=== PATIENT | female | born 1995 | race American Indian/Alaskan Native ===

== ENCOUNTER 2021-07-21 11:26 | Emergency (ER) | payer MEDICAID ==
[2021-07-21] MEDS ORDERED: ONDANSETRON 4 MG/2 ML INJ IV ONE (11:53)
[2021-07-21] MEDS ORDERED: SODIUM CHLORIDE 0.9% 1000 ML 1,000 ML IV ONE (11:53)
[2021-07-21] MEDS ORDERED: MORPHINE 2 MG/1 ML INJ IV ONE (11:53)
[2021-07-21] MEDS ORDERED: ACETAMINOPHEN 500 MG TAB PO ONE (11:54)
[2021-07-21 12:34] LABS: Alanine Aminotransferase 20 units/L (7-56); Albumin 3.8 g/dL (3.9-5); Blood Urea Nitrogen 9 mg/dL (7-17); Calcium 8.9 mg/dL (8.4-10.2); Hemolysis Index 5
[2021-07-21 12:55] LABS: Basophils % (Auto) 0.3 % (0.0-1.8); Eosinophils % (Auto) 0.4 % (0.0-4.3); Hemoglobin 13.9 gm/dl (10.1-14.3); Lymphocytes # (Auto) 1.2 K/mm3 (1.2-5.4); Lymphocytes % (Auto) 11.7 % (13.4-35.0); Mean Corpuscular HGB Conc 33 % (30-34); Mean Corpuscular Volume 82 fl (79-97); Monocytes # (Auto) 0.8 K/mm3 (0.0-0.8); Monocytes % (Auto) 7.7 % (0.0-7.3); Platelet Count 277 K/mm3 (140-440); Red Blood Count 5.11 M/mm3 (3.65-5.03); Red Cell Distribution Width 14.8 % (13.2-15.2)
[2021-07-21 13:07] LABS: BUN/Creatinine Ratio 13
--- NOTE | 2021-07-21 16:00 | Emergency Department Report ---
- General Chief complaint: Skin/Abscess/Foreign Body Stated complaint: BOIL Time Seen by Provider: 07/21/21 11:51 Source: patient Mode of arrival: Ambulatory Limitations: No Limitations - History of Present Illness Initial comments: 25-year-old -Fil[place] female presents to the emergency room for 2 to 3- day history of left inner thigh what she thinks is a spider bite. She comes in febrile mildly tachycardic and in pain. Patient denies any chest pain or shortness of breathing. She states that her inner thighs very painful. Up-to-date on all vaccines. No trauma that she is aware of. MD complaint: abscess/boil Onset/Timin -: days(s) Tetanus Up to Date: yes Location: LLE (Thigh) Severity scale (0 -10): 8 Quality: burning, stabbing Consistency: constant Improves with: none Worsens with: palpation, movement Context: other (Concern for spider bite) Associated symptoms: fever, chills - Related Data Previous Rx's Medication Instructions Recorded Last Taken Type Doxycycline Hyclate [Doxycycline 100 mg PO Q12HR 10 Days #20 tab 07/21/21 Unknown Rx Hyclate TAB] Ibuprofen [Motrin 800 MG tab] 800 mg PO Q8HR PRN #30 tablet 07/21/21 Unknown Rx Allergies Allergy/AdvReac Type Severity Reaction Status Date / Time No Known Allergies Allergy Unverified 07/21/21 11:42 Abscess Boil HPI - HPI Chief Complaint: Skin/Abscess/Foreign Body Stated Complaint: BOIL Time Seen by Provider: 07/21/21 11:51 Home Medications: Previous Rx's Medication Instructions Recorded Last Taken Type Doxycycline Hyclate [Doxycycline 100 mg PO Q12HR 10 Days #20 tab 07/21/21 Unknown Rx Hyclate TAB] Ibuprofen [Motrin 800 MG tab] 800 mg PO Q8HR PRN #30 tablet 07/21/21 Unknown Rx Allergies/Adverse Reactions: Allergies Allergy/AdvReac Type Severity Reaction Status Date / Time No Known Allergies Allergy Unverified 07/21/21 11:42 ED Review of Systems ROS: Stated complaint: BOIL Other details as noted in HPI Comment: All other systems reviewed and negative ED Past Medical Hx - Past Medical History Previous Medical History?: No - Surgical History Past Surgical History?: No - Medications Home Medications: Home Medications Medication Instructions Recorded Confirmed Last Taken Type Doxycycline Hyclate [Doxycycline 100 mg PO Q12HR 10 Days #20 tab 07/21/21 Unknown Rx Hyclate TAB] Ibuprofen [Motrin 800 MG tab] 800 mg PO Q8HR PRN #30 tablet 07/21/21 Unknown Rx ED Physical Exam - General Limitations: No Limitations General appearance: alert, in no apparent distress - Head Head exam: Present: atraumatic, normocephalic - Eye Eye exam: Present: normal appearance - ENT ENT exam: Present: mucous membranes moist - Neck Neck exam: Present: normal inspection - Respiratory Respiratory exam: Present: normal lung sounds bilaterally. Absent: respiratory distress - Cardiovascular Cardiovascular Exam: Present: regular rate, normal rhythm. Absent: systolic murmur, diastolic murmur, rubs, gallop - GI/Abdominal GI/Abdominal exam: Present: soft, normal bowel sounds - Extremities Exam Extremities exam: Present: normal inspection - Expanded Lower Extremity Exam Left Upper Leg exam: Present: full ROM, tenderness, swelling, erythema Knee exam: Present: normal inspection, full ROM Ankle exam: Present: normal inspection, full ROM Foot/Toe exam: Present: normal inspection, full ROM Neuro vascular tendon exam: Present: no vascular compromise - Back Exam Back exam: Present: normal inspection - Neurological Exam Neurological exam: Present: alert, oriented X3, normal gait - Psychiatric Psychiatric exam: Present: normal affect, normal mood - Skin Skin exam: Present: warm, dry, intact, normal color. Absent: rash ED Course Vital Signs 07/21/21 11:42 Temperature 101 F H Pulse Rate 102 H Respiratory 20 Rate Blood Pressure 125/57 [Right] O2 Sat by Pulse 100 Oximetry ED Medical Decision Making - Lab Data Result diagrams: 07/21/21 12:02 07/21/21 12:02 - Medical Decision Making 25-year-old -Fil[place] female presents to the emergency room for 2 to 3- day history of left inner thigh what she thinks is a spider bite. She comes in febrile mildly tachycardic and in pain. Patient denies any chest pain or shortness of breathing. She states that her inner thighs very painful. Up-to-date on all vaccines. No trauma that she is aware of. Critical care attestation.: If time is entered above; I have spent that time in minutes in the direct care of this critically ill patient, excluding procedure time. ED Disposition Clinical Impression: Cellulitis of left thigh Disposition: HOME / SELF CARE / HOMELESS Is pt being admited?: No Does the pt Need Aspirin: No Condition: Stable Instructions: Cellulitis, Adult, [id number] Additional Instructions: Complete antibiotics as prescribed pain medication as needed increase your fluid intake. Follow-up with a primary care provider. Prescriptions: Doxycycline Hyclate [Doxycycline Hyclate TAB] 100 mg PO Q12HR 10 Days #20 tab Ibuprofen [Motrin 800 MG tab] 800 mg PO Q8HR PRN #30 tablet PRN Reason: Pain , Severe (7-10) Referrals: MALIHA HOLLAND [Primary Care Provider] - 3-5 Days Forms: Work/School Release Form(ED) Time of Disposition: 16:03
[2021-07-21 17:35] VITALS: BP 132/84
== END 2021-07-21 17:34 | disposition home or self-care (01) ==
LOC: ED 11:26
DX: L03.116 Cellulitis of left lower limb (principal)
CPT/HCPCS: 36415; 80053; 82140; 84702; 85025; 96361; 96374; 96375; 99283; J2270; J2405; J7030; Q0162